=== PATIENT | female | born 1980 | race Two or more races ===

== ENCOUNTER 2025-07-01 15:41 | Emergency (ER) | payer OTHER ==
[~2025-07-01] VITALS: Ht 157.5 cm; Wt 65.8 kg
[2025-07-01 15:48] VITALS: BP 125/79; TEMP 97.9
[2025-07-01] MEDS ORDERED: ACETAMINOPHEN 325 MG TABLET ONE (17:07)
[2025-07-01] MEDS ORDERED: IBUP-1953 PO (17:23)
[2025-07-01] MEDS ORDERED: ACET325C7 PO (17:23)
[2025-07-01] MEDS: ACETAMINOPHEN 325 MG TABLET PO ONE (17:24)
[2025-07-01 17:32] VITALS: O2SAT 100
== END 2025-07-01 17:58 | disposition home or self-care (01) ==
LOC: ER 15:41
DX: S82.831A Other fracture of upper and lower end of right fibula, initial encounter for closed fracture (principal); Z60.3 Acculturation difficulty; X50.1XXA Overexertion from prolonged static or awkward postures, initial encounter; Y93.89 Activity, other specified; Y92.89 Other specified places as the place of occurrence of the external cause; Y99.8 Other external cause status
CPT/HCPCS: 73610-TC; 73630-TC